=== PATIENT | male | born 1990 | race Caucasian/White ===

== ENCOUNTER 2023-03-15 14:39 | Emergency (ER) | payer OTHER ==
[~2023-03-15] VITALS: Ht 190.5 cm; Wt 88.0 kg
[2023-03-15] MEDS ORDERED: PROPRANOLOL HCL 10MG TABLET PO ONE (15:30)
[2023-03-15] MEDS ORDERED: LISINOPRIL 40MG TABLET PO ONE (15:30)
[2023-03-15] MEDS ORDERED: LORAZEPAM 1MG TABLET PO ONE (16:15)
[2023-03-15 16:48] VITALS: BP 181/123
== END 2023-03-15 16:50 ==
LOC: ER 14:39
DX: I10 Essential (primary) hypertension (principal); F41.9 Anxiety disorder, unspecified
CPT/HCPCS: 99284